=== PATIENT | male | born 1955 | race Caucasian/White ===

== ENCOUNTER 2017-05-16 16:16 | Emergency (ER) | payer BC ==
[2017-05-16] MEDS ORDERED: Fluorescein Opthalmic Strip ONE (18:05)
[2017-05-16] MEDS ORDERED: Proparacaine 0.5% Opth 15 ML BOT ONE (18:06)
== END 2017-05-16 18:41 | disposition home or self-care (01) ==
LOC: ERS 16:16
DX: T15.02XA Foreign body in cornea, left eye, initial encounter (principal); F17.220 Nicotine dependence, chewing tobacco, uncomplicated; Z71.6 Tobacco abuse counseling
CPT/HCPCS: 99406